=== PATIENT | female | born 1960 | race Two or more races ===

== ENCOUNTER 2024-01-17 13:18 | Outpatient (CLI) | payer OTHER | END 2024-01-17 13:26 | disposition home or self-care (01) | LOC: RAD 13:18 | PROVIDERS: ATTEND Orthopaedic Surgery Orthopaedic Surgery of the Spine | DX: M41.9 Scoliosis, unspecified (principal) ==

== ENCOUNTER 2024-09-22 05:47 | Day surgery (SDC) | payer OTHER ==
[2024-09-09 12:33] VITALS: BP 137/89
[~2024-09-22] VITALS: Ht 157.5 cm; Wt 59.0 kg
[~2024-09-22 05:47] MED LIST: PEPCID AC20 MG PO
[2024-09-22] MEDS ORDERED: IBU600 MG PO (09:41)
[2024-09-22] MEDS ORDERED: POVIDONE-IODINE 118 ML BOTT TOP ONE (10:00)
== END 2024-09-22 17:05 | disposition home or self-care (01) ==
LOC: CIR.AMB 05:47
PROVIDERS: ATTEND Obstetrics & Gynecology Gynecology
DX: N95.0 Postmenopausal bleeding (principal); N84.0 Polyp of corpus uteri; Z88.5 Allergy status to narcotic agent